=== PATIENT | male | born 2000 ===

== ENCOUNTER 2022-04-08 21:38 | Emergency (ER) | payer OTHER ==
[2022-04-08 21:48] VITALS: BP 143/88; PULSE 68; RESP 16; TEMP 98.4
--- NOTE | 2022-04-08 22:54 | ED ---
Eye Problem HPI - General Chief complaint: Eye Problems Stated complaint: R eye issue Time Seen by Provider: 04/08/22 22:42 Source: patient Mode of arrival: ambulatory Limitations: no limitations - History of Present Illness Initial comments: Patient is a 21-year-old male presenting with chief complaint of right eye discomfort. Patient states that he woke up with his eye crusted shut. Notices that his eye appears reddened. He has been frequently watering, no vision changes. Patient admits to wearing contact lenses and sleeping in his contacts frequently. No pain or swelling surrounding the eye. No fever or chills. No headache or neck pain. Some redness and discomfort starting to spread to the left eye. He admits to itching and some light sensitivity. No foreign body sensation or recent injury/trauma. - Related Data Previous Rx's Medication Instructions Recorded Levofloxacin 0.5% Ophth Soln 1 drop BOTH EYES Q4HR 5 Days #5 ml 04/09/22 [Quixin Ophth Soln] Allergies Allergy/AdvReac Type Severity Reaction Status Date / Time No Known Allergies Allergy Verified 04/08/22 21:48 Review of Systems ROS Statement: Those systems with pertinent positive or pertinent negative responses have been documented in the HPI. ROS Other: All systems not noted in ROS Statement are negative. Past Medical History Past Medical History: No Reported History History of Any Multi-Drug Resistant Organisms: None Reported Past Surgical History: No Surgical Hx Reported Past Psychological History: No Psychological Hx Reported Smoking Status: Never smoker Past Alcohol Use History: None Reported Past Drug Use History: None Reported General Exam Limitations: no limitations General appearance: alert, in no apparent distress Head exam: Present: atraumatic, normocephalic, normal inspection Eye exam: Present: PERRL, EOMI, conjunctival injection. Absent: scleral icterus, periorbital swelling, periorbital tenderness Pupils: Present: normal accommodation Expanded Eyelids: Normal Inspection: Bilateral Pupils: Regular, Round: Bilateral, Reactive: Bilateral Sclera/Conjunctival: Injection: Bilateral Neck exam: Present: normal inspection Neurological exam: Present: alert, oriented X3, CN II-XII intact Psychiatric exam: Present: normal affect, normal mood Skin exam: Present: warm, dry, intact, normal color. Absent: rash Course Vital Signs 04/08/22 21:45 Temperature 98.4 F Pulse Rate 68 Respiratory 16 Rate Blood Pressure 143/88 O2 Sat by Pulse 99 Oximetry Medical Decision Making - Medical Decision Making Patient is a 21-year-old male presenting with chief complaint of right eye redness and discomfort. Admits to discharge and watering, light sensitivity, itching. No trauma, foreign body sensation, or recent injury. No visual changes. On examination there is bilateral conjunctival injection and scleral injection. Eyes are watering. Patient is a contact lens wearer. Symptoms are likely due to viral conjunctivitis or allergic conjunctivitis. Due to small potential for bacterial conjunctivitis, will be given levofloxacin eyedrops. Educated on supportive treatment and discontinuing the use of contact lenses for one week or until infection is cleared. Follow-up with PCP. Report back to ER with any new or worsening symptoms. Discussed return parameters and answered all questions. Patient conveyed verbal understanding and agreed to the plan. I discussed this case in detail with my attending Dr. Marx. Disposition Clinical Impression: Viral conjunctivitis Disposition: HOME SELF-CARE Condition: Good Instructions (If sedation given, give patient instructions): Conjunctivitis (ED) Additional Instructions: Follow-up with PCP. Report back to ER with any new or worsening symptoms. Apply 1-2 eyedrops to both eyes every 4 hours while awake for 5 days. Discontinue contact lens use until infection has completely cleared. Avoid touching the eye to avoid spreading the infection, wash hands frequently. Take an onvs-ips-moohqzv antihistamine such as Zyrtec or Marla as needed. Is patient prescribed a controlled substance at d/c from ED?: No Referrals: None,Stated [Primary Care Provider] - 1-2 days Time of Disposition: 22:54
[2022-04-08] MEDS ORDERED: LEVOFLOXACIN 0.5% OPHTH DROPS 5 ML BTL BOTH EYES SCH (23:00)
== END 2022-04-08 23:30 | disposition home or self-care (01) ==
LOC: EC 21:38
DX: B30.9 Viral conjunctivitis, unspecified (principal)
CPT/HCPCS: 99282